=== PATIENT | female | born 1995 | race Caucasian/White ===

== ENCOUNTER 2016-05-19 17:43 | Emergency (ER) | payer BC ==
[2016-05-19 17:54] VITALS: BP 137/80
--- NOTE | 2016-05-19 18:06 | UC ---
Throat Pain/Nasal Sadi HPI - HPI Summary HPI Summary: 21 yo female with sore throat and swollen glands x 1 day no f/c no n/v no myalgias or ARMSTRONG - History of Current Complaint Chief Complaint: UCRespiratory Stated Complaint: SORE THROAT,[place] Time Seen by Provider: 05/19/16 17:51 Hx Obtained From: Patient Hx Last Menstrual Period: 05/18/16 Onset/Duration: Gradual Onset, Lasting Hours Severity: Moderate Pain Intensity: 4 Pain Scale Used: 0-10 Numeric Associated Signs & Symptoms: Positive: Negative Related History: T & A - Epiglottits Risk Factors Epiglottis Risk Factors: Negative - Allergies/Home Medications Allergies/Adverse Reactions: Allergies Allergy/AdvReac Type Severity Reaction Status Date / Time No Known Allergies Allergy Verified 05/19/16 17:54 Home Medications: Home Medications Ibuprofen [Ibuprofen 200 MG] 200 mg PO PRN 05/19/16 [History] PMH/Surg Hx/FS Hx/Imm Hx Previously Healthy: Yes - Surgical History Surgical History: Yes Surgery Procedure, Year, and Place: T&A. [facility] - Family History Known Family History: Positive: Hypertension - Social History Alcohol Use: Rare Substance Use Type: None Smoking Status (MU): Never Smoked Tobacco - Immunization History Hx Tetanus, Diphtheria Vaccination: Yes Vaccination Up to Date: Yes Review of Systems Constitutional: Negative Skin: Negative Eyes: Negative ENT: Sore Throat Respiratory: Negative Cardiovascular: Negative Gastrointestinal: Negative Genitourinary: Negative Motor: Negative Neurovascular: Negative Musculoskeletal: Negative Neurological: Negative Psychological: Negative All Other Systems Reviewed And Are Negative: Yes Physical Exam Triage Information Reviewed: Yes Appearance: Well-Appearing, No Pain Distress, Well-Nourished Vital Signs: Initial Vital Signs Temp 98.8 F 05/19/16 17:48 Pulse 97 05/19/16 17:48 Resp 14 05/19/16 17:48 BP 137/80 05/19/16 17:48 Pulse Ox 100 05/19/16 17:48 Vital Signs Reviewed: Yes Eyes: Positive: Conjunctiva Clear ENT: Positive: Hearing grossly normal, Pharyngeal erythema, TMs normal. Negative: Nasal congestion, Nasal drainage, TM bulging, TM dull, TM red, Tonsillar swelling, Tonsillar exudate, Trismus, Other: Neck: Positive: Supple, Nontender, Enlarged Nodes @ - ant cervical nodes Respiratory: Positive: Lungs clear, Normal breath sounds, No respiratory distress Cardiovascular: Positive: RRR, No Murmur Musculoskeletal: Positive: Strength Intact, ROM Intact Neurological: Positive: Alert Psychological Exam: Normal Skin Exam: Normal Throat Pain/Nasal Course/Dx - Differential Dx/Diagnosis Provider Diagnoses: strep throat Discharge - Discharge Plan Condition: Stable Disposition: HOME Prescriptions: Amoxicillin (*) 875 mg PO BID #20 tab Patient Education Materials: Pharyngitis (ED) Referrals: Non Staff,Doctor [Primary Care Provider] - Additional Instructions: rest tylenol advil
== END 2016-05-19 18:39 | disposition home or self-care (01) ==
LOC: UCCORT 17:43
DX: J02.9 Acute pharyngitis, unspecified (principal); J02.0 Streptococcal pharyngitis
CPT/HCPCS: 87651; 99212; G0463

== ENCOUNTER 2016-06-02 09:24 | Emergency (ER) | payer BC ==
[2016-06-02 10:51] VITALS: BP 116/72
--- NOTE | 2016-06-02 11:15 | UC ---
Respiratory Complaint HPI - HPI Summary HPI Summary: cough for three days and then myalgias started today. The cough is mildly productive. she has nasal congestion as well. - History of Current Complaint Chief Complaint: UCRespiratory Stated Complaint: COUGH,ACHY Hx Obtained From: Patient Hx Last Menstrual Period: 05/18/16 Onset/Duration: Gradual Onset, Lasting Days Timing: Constant Severity Initially: Mild Severity Currently: Moderate Character: Cough: Productive Aggravating Factors: Deep Breaths Alleviating Factors: OTC Meds Associated Signs And Symptoms: Positive: URI, Nasal Congestion, Hoarseness. Negative: Dyspnea, Fever, Chills, Pleuritic Chest Pain, Wheezing, Hemoptysis, Calf Pain, Calf Swelling, Sinus Discomfort - she has sinus congestion. - Risk Factors Cardiac Risk Factors: Negative Pseudomonas Risk Factors: Negative - Allergies/Home Medications Allergies/Adverse Reactions: Allergies Allergy/AdvReac Type Severity Reaction Status Date / Time No Known Allergies Allergy Verified 06/02/16 10:51 PMH/Surg Hx/FS Hx/Imm Hx Endocrine History Of: Denies: Diabetes - Surgical History Surgical History: Yes Surgery Procedure, Year, and Place: T&A. [facility] - Family History Known Family History: Positive: None, Hypertension - Social History Alcohol Use: Occasionally Substance Use Type: None Smoking Status (MU): Never Smoked Tobacco - Immunization History Hx Tetanus, Diphtheria Vaccination: Yes Vaccination Up to Date: Yes Review of Systems All Other Systems Reviewed And Are Negative: Yes Physical Exam Triage Information Reviewed: Yes Appearance: Well-Appearing, No Pain Distress, Well-Nourished Vital Signs: Initial Vital Signs Temp 98.7 F 06/02/16 10:45 Pulse 88 06/02/16 10:45 Resp 20 06/02/16 10:45 BP 116/72 06/02/16 10:45 Pulse Ox 99 06/02/16 10:45 Vital Signs Reviewed: Yes Eyes: Positive: Conjunctiva Clear. Negative: Conjunctiva Inflamed ENT: Positive: Normal ENT inspection, Hearing grossly normal, Pharynx normal, Nasal congestion, TMs normal. Negative: Pharyngeal erythema, Nasal drainage, TM bulging, TM dull, TM red, Tonsillar swelling, Tonsillar exudate, Trismus, Muffled/hoarse voice Neck exam: Normal Neck: Positive: Supple, Nontender, No Lymphadenopathy. Negative: Nuchal Rigidity, Tenderness @, Enlarged Nodes @ Respiratory: Positive: Lungs clear, Normal breath sounds, No respiratory distress, No accessory muscle use. Negative: Respiratory distress, Decreased breath sounds, Accessory muscle use Cardiovascular Exam: Normal Cardiovascular: Positive: RRR, No Murmur, Pulses Normal Abdomen Description: Positive: Nontender, No Organomegaly, Soft Musculoskeletal: Positive: No Edema Neurological Exam: Normal Neurological: Positive: Alert, Muscle Tone Normal. Negative: Fatigued Psychological Exam: Normal Skin Exam: Normal Skin: Negative: rashes UC Diagnostic Evaluation - Laboratory O2 Sat by Pulse Oximetry: 99 Respiratory Course/Dx - Course Course Of Treatment: tylenol with codeine and robitussin at night. mucinex in the day. she agrees to return for any worsening. no clinical signs of influenza or pneumonia. - Differential Dx/Diagnosis Differential Diagnosis/HQI/PQRI: Airway Obstruction, Foreign Body, Aspiration, Asthma, Bronchitis, Pulmonary Edema, Influenza, Laryngitis, Lower Resp Infection , Pulmonary Embolism, Sinusitis, Tuberculosis Provider Diagnoses: cough and uri. acute bronchitis viral. Discharge - Discharge Plan Condition: Good Disposition: HOME Prescriptions: Acetaminop/Codeine 30 MG TAB* [Tylenol/Codeine 30 MG TAB*] 1 tab PO BEDTIME PRN #12 tab MDD 1 PRN Reason: Cough Phenylephrine-Diphenhydramine- [Robitussin Cough & Cold D] 1 mis PO BEDTIME PRN #100 mis PRN Reason: Cough Patient Education Materials: Acute Bronchitis (ED) Referrals: Non Staff,Doctor [Primary Care Provider] - Additional Instructions: return here for any worsening as we discussed.
== END 2016-06-02 11:16 | disposition home or self-care (01) ==
LOC: UCCORT 09:24
DX: J06.9 Acute upper respiratory infection, unspecified (principal); J20.8 Acute bronchitis due to other specified organisms
CPT/HCPCS: 99212; G0463